=== PATIENT | female | born 1950 | race Hispanic/Latino ===

== ENCOUNTER 2018-04-21 07:45 | Observation (INO) | payer MEDICARE ==
--- NOTE | 2018-04-20 10:24 | Diagnostic Imaging Report ---
PROCEDURE:CHEST 2 VIEWS TECHNIQUE:PA and lateral chest INDICATION:Preoperative chest x-ray for anterior repair. COMPARISON:None. FINDINGS: Lungs are clear and symmetrically inflated. No pleural effusions. Normal heart size, mediastinal contour and pulmonary vasculature. Intact skeleton. CONCLUSION: No acute abnormality. Dictated by: Ben Wang M.D. on 04/20/2018 at 10:27 Electronically approved by: Ben Wang M.D. on 04/20/2018 at 10:27
[2018-04-20 10:32] LABS: BASOPHILS % 0.4 % (0.0-1.0); EOSINOPHILS # (AUTO) 0.1 (0.0-0.4); EOSINOPHILS % 0.9 % (0.0-6.0); HEMATOCRIT 42.2 % (34.2-44.1); HEMOGLOBIN 13.8 g/dL (12.0-16.0); LYMPHOCYTES # (AUTO) 1.7 (1.0-3.2); LYMPHOCYTES % 31.1 % (18.0-39.1); MEAN CORPUSCULAR HGB CONC 32.7 g/dL (31-35); MEAN CORPUSCULAR VOLUME 91.7 fL (81-99); MONOCYTES # (AUTO) 0.4 (0.2-0.8); MONOCYTES % 6.5 % (4.4-11.3); NEUTROPHILS # (AUTO) 3.4 (2.1-6.9); NEUTROPHILS % 60.7 % (38.7-80.0); PLATELET COUNT 245 x10e3/uL (140-360); RED CELL DISTRIBUTION WIDTH 13.3 % (11.7-14.4)
[2018-04-20 10:57] LABS: ALANINE AMINOTRANSFERASE 32 IU/L (0-55); ALBUMIN 4.3 g/dL (3.5-5.0); ALBUMIN/GLOBULIN RATIO 1.2 (0.8-2.0); ALKALINE PHOSPHATASE 109 IU/L (40-150); ANION GAP 12.4 mmol/L (8-16); BLOOD UREA NITROGEN 9 mg/dL (7-26); BUN/CREATININE RATIO 14 (6-25); CALCIUM 10.2 mg/dL (8.4-10.2); CARBON DIOXIDE 27 mmol/L (22-29); CHLORIDE 107 mmol/L (98-107); CREATININE, SERUM 0.64 mg/dL (0.57-1.11); EST GLOMERULAR FILTRATION RATE > 60 ML/MIN (60-); GLUCOSE 99 mg/dL (74-118); POTASSIUM 4.4 mmol/L (3.5-5.1); SODIUM 142 mmol/L (136-145)
--- OUTSIDE RECORDS SUMMARY | 2018-04-21 07:47 | XMS REPORT ---
[facility] Address Unknown Phone Unavailable Care Team Providers Care News Videographer Name Role Phone TAMMI COUCH Unavailable Unavailable Problems This patient has no known problems. Allergies, Adverse Reactions, Alerts This patient has no known allergies or adverse reactions. Medications This patient has no known medications. Results Test Description Test Time Test Comments Text Results Atomic Results Result Comments CHEST 2 VIEWS [place] [address] Patient Name: IRVIN CLARKE MR #: [id number] : 1950 Age/Sex: 67/F Req #: [id number] Adm Physician: Ordered by: TAMMI COUCH MD Report #: [id number] Location: OR Room/Bed: Procedure: [id number] DX/CHEST 2 VIEWS Exam Date: Exam Time: REPORT STATUS: Signed PROCEDURE: CHEST 2 VIEWS TECHNIQUE: PA and lateral chest INDICATION: Preoperative chest x-ray for anterior repair. COMPARISON: None. FINDINGS: Lungs are clear and symmetrically inflated. No pleural effusions. Normal heart size, mediastinal contour and pulmonary vasculature. Intact skeleton. CONCLUSION: No acute abnormality. Dictated by: Santiago Wang M.D. on 04/20/2018 at 10:27 Electronically approved by: Santiago Wang M.D. on 2017 at 10:27 Dictated By: SANTIAGO WANG MD 1027 Transcribed By: VERNON on 1027 COPY TO: TAMMI COUCH MD
[2018-04-21] MEDS ORDERED: CEFAZOLIN SOD 2 GM/D5W 50ML 50 ML IV ONE (08:04)
[2018-04-21] MEDS ORDERED: BUPIVACAINE 0.25%/EPI 30ML SDV INJ ONE (09:47)
[2018-04-21] MEDS ORDERED: ESTROGENS CONJUGATED VAGINAL CR 45 GM TUBE PV ONE (09:47)
[2018-04-21] MEDS ORDERED: FENTANYL CITRATE/PF 100MCG/2 ML INJ ONE ×2 (11:24→18:27)
[2018-04-21] MEDS ORDERED: DOCUSATE SODIUM 100 MG CAP PO PRN (12:15)
[2018-04-21] MEDS ORDERED: KETOROLAC TROMETHAMINE 30 MG/ML VIAL IM PRN (12:15)
[2018-04-21] MEDS ORDERED: ONDANSETRON HCL INJ 2 MG/ML VIAL IV PRN (12:15)
[2018-04-21] MEDS: LACTATED RINGER'S 1,000 ML IV SCH ×2 (13:00→20:37)
[2018-04-21] MEDS: HYDROCODONE/APAP 10MG-325MG TAB PO PRN ×2 (13:29→22:20)
--- NOTE | 2018-04-21 15:47 | Operative Report ---
DATE OF PROCEDURE: April 21, 2018 PREOPERATIVE DIAGNOSIS: Pelvic organ prolapse. POSTOPERATIVE DIAGNOSIS: Pelvic organ prolapse. PROCEDURES 1. Anterior repair. 2. Sacrospinous colpopexy. 3. Transobturator tape. 4. Cystoscopy. DINKEY DRIVER: Dr. Hoyos COMPLICATIONS: None. ESTIMATED BLOOD LOSS: 50 mL. DESCRIPTION OF PROCEDURE: The patient was taken to the OR. Under general anesthesia, she was prepped and draped in the normal sterile fashion. She was placed in the dorsal lithotomy position with hyperflexion of the hip joints on candy-cane stirrups. Vaginal vault was held with 2 Allises. The anterior wall of the vagina was injected with Marcaine with epinephrine 0.25%, about 20 mL. A transverse vaginal skin incision at the vaginal vault was made with a scalpel, and the vagina was dissected off the bladder using Metzenbaum scissors using the push-spread technique. The anterior vagina was opened in the midline using the same instrument. Two flaps of the vagina were dissected off the bladder using both sharp and blunt dissection and gentle sweeps of a Ray-Zafar wrapped on the index finger. Following this, the vaginal vault had 2nd-degree vaginal prolapse. Accordingly, a decision was made to carry on with sacrospinous colpopexy. The pelvic floor was pierced with an index finger. The sacrospinous ligament and ischial spine were palpated, and Vicryl sutures using the Capio SLIM device were thrown into the middle portion of the sacrospinous ligament about 1 cm medial to the ischial spine. The same was repeated on the other side of the pelvis. The other ends of the suture were stitched to the vaginal vault. The pubocervical ligaments were approximated using Vicryl 2-0. Excess skin of the vagina was trimmed off using curved Riggs scissors. The pubocervical ligaments on each side were approximated using Vicryl 2-0. The excess vaginal skin was trimmed off using Vicryl #0. The vagina was closed with interlocking stitches of Vicryl #0. The sacrospinous ligament sutures were tied to the vaginal vault. Following this, attention was made to the TOT part of the procedure. A Jaeger catheter was placed in and revealed clear urine. The mid portion of the mid urethra was injected with . The vagina was dissected off the urethra using Metzenbaum scissors. The same was repeated on the other side. The entry points were marked on each side of the pelvis at the level of the clitoris in the intracrural. The Obtryx trocar was passed through the entry points, which were made with the scalpel. The Obtryx trocar was guide through the outside of the vaginal vault. The sling was inserted over the curved Obtryx trocar, and the same was withdrawn. The same was repeated on the other side, lying down flat the transobturator tape at the level of the mid urethra. The plastic cover was removed. Cystoscopy was performed. It showed normal bladder and urethra. The vagina was closed with interlocking stitches of Vicryl 2-0. The sacrospinous colpopexy sutures were tied, and the vaginal port was left. Suction and irrigation were carried out with warm saline. A vaginal pack was inserted. The patient tolerated the procedure well. Lap and instrument counts were correct times 2 at the end of the procedure. Job#: [id number]
[2018-04-21 16:00] VITALS: BP 157/77
[2018-04-21] MEDS ORDERED: MIDAZOLAM HCL 2 MG/2 ML VIAL ONE (18:27)
[2018-04-21] MEDS ORDERED: LIDOCAINE HCL 2% LOCAL INJ 5 ML SDV VIAL INJ ONE (18:50)
[2018-04-21] MEDS ORDERED: SEVOFLURANE INHAL SOLN 250 ML PEN BTL ONE (18:50)
[2018-04-21] MEDS ORDERED: DEXAMETHASONE SOD PHOS INJ 4 MG/ML VIAL ONE (18:50)
[2018-04-21] MEDS ORDERED: ONDANSETRON HCL INJ 2 MG/ML VIAL ONE (18:50)
[2018-04-21] MEDS ORDERED: PROPOFOL IV EMULSION 10 MG/ML 20 ML VIAL ONE (18:50)
[2018-04-21] MEDS ORDERED: ACETAMINOPHEN 1000 MG/100 ML IV ONE (18:50)
[2018-04-21 21:17] VITALS: BP 157/77
[2018-04-22] MEDS: LACTATED RINGER'S 1,000 ML IV SCH ×2 (04:31→12:07)
[2018-04-22] MEDS: HYDROCODONE/APAP 10MG-325MG TAB PO PRN ×2 (04:31→11:23)
[2018-04-22 07:53] VITALS: BP 157/77
[2018-04-22 08:25] VITALS: BP 132/72
[2018-04-22 12:48] VITALS: BP 151/72
== END 2018-04-22 14:35 | disposition home or self-care (01) ==
LOC: OR 07:45 → MED/SURG2 12:55
PROVIDERS: ADMIT Obstetrics & Gynecology; ATTEND Obstetrics & Gynecology
DX: N81.89 Other female genital prolapse (principal); N81.12 Cystocele, lateral; N39.3 Stress incontinence (female) (male)
CPT/HCPCS: 36415; 57240; 57282; 57288; 71046; 80053; 85025; 93005; C1781; G0378 ×2; J1100; J2001; J2250; J2405; J7120 ×2